=== PATIENT | female | born 1965 | race Hispanic/Latino ===

== ENCOUNTER 2016-10-03 16:55 | Emergency (ER) | payer OTHER ==
[2016-10-03 19:30] LABS: URINE MICRO REVIEW NEEDED? NO; URINE SOURCE CLEAN CATCH
[2016-10-03 19:49] LABS: BILIRUBIN URINE NEGATIVE (NEGATIVE); BLOOD URINE NEGATIVE (NEGATIVE); COLOR YELLOW; GLUCOSE URINE >1000 mg/dL (NEGATIVE); LEUKOCYTES URINE LARGE (NEGATIVE); NITRITE URINE NEGATIVE (NEGATIVE); PH URINE 6.5; PROTEIN URINE NEGATIVE (NEGATIVE); SP GRAVITY URINE 1.036; TURBIDITY URINE HAZY (CLEAR); UR EPITHELIAL CELLS <10 /HPF (<10); URINE BACTERIA 1+ /HPF; URINE CULTURE NEEDED? YES; URINE RBC <10 /HPF (<10); UROBILINOGEN URINE NORMAL (NORMAL)
[2016-10-03 19:53] VITALS: BP 197/90
--- NOTE | 2016-10-03 19:58 | PROVIDER DOCUMENTATION ---
HPI-Female /OB/Breast - General Chief Complaint: Female Stated Complaint: female gu Time Seen by Provider: 10/03/16 17:32 Source: reports: patient Allergies/Adverse Reactions: Patient Allergies Allergy/AdvReac Type Severity Reaction Status Date / Time No Known Allergies Allergy Verified 10/03/16 17:57 Home Medications: No Home Medications 10/03/16 - History of Present Illness-Female /OB Nature of Presenting Problem: Pt is a 50 yof who presents to ER with CC of vaginal burning and itching x1 week. Pt reports that she is in a monogamous marriage and has been for years, but denies vaginal discharge or hematuria. Does patient report she is ?: No Location of complaint: reports: vaginal Quality of Pain: reports: burning, other (itching) Severity in ED: reports: mild Onset/Duration: reports: 1 week ago Timing: reports: still present Vaginal Symptoms: reports: itching. denies: abnormal bleeding, discharge, pain with intercourse Vaginal Bleeding Amount: None Sexual intercourse history: reports: Single Partner Associated Symptoms: reports: other (hematuria; vaginal itching/burning) Review of Systems - Adult - REVIEW OF SYSTEMS - ADULT Constitutional: denies: chills, fever, fatique Eyes: reports: no symptoms reported Ears, Nose, Mouth & Throat: reports: no symptoms reported Cardiovascular: reports: no symptoms reported Respiratory: reports: no symptoms reported Gastrointestinal: reports: no symptoms reported Genitourinary: reports: other (vaginal itching/burning). denies: discharge, frequent UTI's, hematuria Musculoskeletal: reports: no symptoms reported Integumentary: reports: no symptoms reported Neurological: reports: no symptoms reported Psychiatric: reports: no symptoms reported Endocrine: reports: no symptoms reported Hematologic/Lymphatic: reports: no symptoms reported Allergic/Immunologic: reports: no symptoms reported All Other Systems: Reviewed and Negative Past History - Adult - PAST MEDICAL HISTORY-ADULT Review of Records: reports: Nursing Assessment Review, Medications Reviewed - IMMUNIZATION STATUS Childhood Immunizations: See Nurse Assessment Flu Vaccine: See Nurse Assessment Physical Exam-General - PHYSICAL EXAM-ADULT Initial Vital Signs Reviewed: Yes - CONSTITUTIONAL General Appearance: appears well, alert, mild distress - EYES Eyes: PERRL/EOMI, pink conjunctivae, fundi clear, no AV nicking - NECK Neck: non-tender, full range of motion, supple - RESPIRATORY Respiratory: chest non-tender, lungs clear, normal breath sounds - CARDIOVASCULAR Cardiovascular: normal peripheral pulses, regular rate, rhythm - GASTROINTESTINAL (ABDOMEN) Abdominal Exam: normal bowel sounds, non tender, soft - GENITOURINARY Female Genitalia/Pelvic Exam: other (yeast infection; UTI). negative: active bleeding, blood, discharge - LYMPHATIC Lymphatic: no adenopathy - MUSCULOSKELETAL Back Exam: no CVA tenderness, no vertebral tenderness Extremity: normal range of motion, non-tender, normal gait - SKIN Integumentary: normal color, normal turgor, warm/dry - NEUROLOGIC Neurologic: grossly normal, no motor/sensory deficits - PSYCHIATRIC Psych/Mental Status: normal mood/affect, normal thought content, normal thought process, oriented x 3 Progress - PLAN OF CARE/RESULTS Progress/Plan/Lab Results: Vital Signs - 24 hr 10/03/16 10/03/16 17:18 19:52 Temperature 98.0 F 97.8 F Pulse Rate 87 85 Respiratory 18 16 Rate Blood Pressure 178/93 197/90 O2 Sat by Pulse 100 100 Oximetry Orders Category Date Time Status Pelvic set up DIRECTED Care 10/03/16 18:47 Active CHLAMYDIA AND GC BY PCR URINE [[place]] Stat Lab 10/03/16 18:50 Received TEST-URINE [PREG] Stat Lab 10/03/16 18:50 Completed URINALYSIS W/POSS RFLX CULT [URINALYSIS] Stat Lab 10/03/16 18:50 Completed URINE CULTURE [] Routine Lab 10/03/16 19:50 Received Laboratory Tests 10/03/16 10/03/16 18:50 18:50 Urine Source CLEAN CATCH Urine Color YELLOW Urine Turbidity HAZY Urine pH 6.5 Ur Specific [place] 1.036 Urine Protein NEGATIVE Ur Glucose (Stick) >1000 A Ur Ketones (Stick) 10 A Urine Blood NEGATIVE Urine Nitrite NEGATIVE Urine Bilirubin NEGATIVE Urobilinogen Dipstick NORMAL Urine Leukocytes LARGE A Urine WBC (Auto) 10-20 A Urine RBC (Auto) <10 U Epithel Cells (Auto) <10 Urine Bacteria (Auto) 1+ Urine Test NEGATIVE Departure - Departure Time of Disposition Order: 19:57 DIAGNOSIS: Vaginal candidiasis UTI (urinary tract infection) Qualifiers: Urinary tract infection type: site unspecified Hematuria presence: without hematuria Qualified Code(s): N39.0 - Urinary tract infection, site not specified Disposition: HOME 01 Certified Medical Emergency: Emergent Condition: Stable Additional Instructions: ED Follow Up Instructions: You have been treated by a care provider in the Emergency Department. These instructions are being provided to you so you can have an understanding of how to care for yourself upon discharge. Upon discharge from the Emergency Department, you are responsible for making arrangements for follow-up care by a physician of your choice. Take all prescribed medications as directed. Return to the Emergency Department immediately for any new or worsening symptoms. You may call the Physician Referral phone number at [phone] to obtain a list of Physicians who are taking new patients. Attestation - Scribe Verification/Attestation Scribe:: Abhilash Jacobo Acting as Scribe for:: Carmelo Harrell Scribe documention review:: This chart was documented by a scribe and accurately reflects the service the provider performed and the decisions made by the provider.
== END 2016-10-03 20:12 | disposition home or self-care (01) ==
LOC: ED 16:55
DX: B37.3 Candidiasis of vulva and vagina (principal); N39.0 Urinary tract infection, site not specified; R10.2 Pelvic and perineal pain; L29.2 Pruritus vulvae; R31.9 Hematuria, unspecified
CPT/HCPCS: 81001; 81025; 87088; 87491; 87591; 99284